=== PATIENT | male | born 1950 | race Caucasian/White ===

== ENCOUNTER 2024-11-21 18:52 | Emergency (ER) | payer MEDICARE, OTHER, SELFPAY ==
[2024-11-21 18:53] VITALS: BP 129/80; BMI 30.6
[2024-11-21 19:34] LABS: % Basophils 0.4 % (0-2); % Immature Granulocytes 0.4 % (0-0.5); % Lymphocytes 14.8 % (20.5-51.1); % Monocytes 7.9 % (1.7-9.3); % Neutrophils 75.5 % (42.2-75.2); Absolute Basophils 0.1 10^3/uL (0-0.2); Absolute Eosinophils 0.1 10^3/uL (0-0.7); Absolute Immature Granulocytes 0.1 10^3/uL (0-0.05); Absolute Lymphocytes 1.8 10^3/uL (1.2-3.4); Absolute Neutrophils 9.1 10^3/uL (1.4-6.5); Hemoglobin 14.7 g/dL (13.0-18.0); Mean Corp Hgb Conc. 36.8 g/dL (33.0-37.0); Mean Platelet Volume 9.8 fL (7.4-10.4); Nucleated Red Blood Cells % 0 % (-); Platelet Count 230 10^3/uL (130-400); Red Cell Dist. Width 12.1 % (11.5-14.5); White Blood Cell Count 12.1 10^3/uL (4.8-10.8)
[2024-11-21 19:47] LABS: ALT (SGPT) 21 U/L (0-50); AST (SGOT) 20 U/L (17-59); Albumin 4.5 g/dl (3.5-5.0); Alkaline Phosphatase 54 U/L (38-126); Blood Urea Nitrogen 14 mg/dl (9-20); Calcium 9.4 mg/dl (8.4-10.2); Carbon Dioxide 28 mmol/L (22-30); Chloride 103 mmol/L (98-107); Glucose 128 mg/dl (70-99); Lipase 31 U/L (23-300); Sodium 138 mmol/L (135-145); Total Bilirubin 1.5 mg/dl (0.2-1.3); Total Protein 7.3 g/dl (6.3-8.2); eGFR > 60.00
[2024-11-21 19:49] VITALS: BP 138/77
[2024-11-21 20:00] VITALS: BP 127/75
--- NOTE | 2024-11-21 20:17 | ED.GENMED ---
History of Present Illness
General
Chief Complaint: Abdominal Pain
Source: patient and spouse
Time Seen by Provider: 11/21/24 19:42
History of Present Illness
History of Present Illness:
This patient is a 74-year-old male presents emergency department complaints of feeling the urge to defecate over the last few days and when he would defecate he still had this sense of pressure in the lower mid abdomen. He thought maybe his belt
was too tight or that he had pulled a muscle. Then, this morning, he noticed the pain had migrated to the left lower quadrant and was described as 'sharp '. The pain is minimal while at rest but gets much worse with moving or walking. He went to
an urgent care today and was referred to the emergency department. He denies fever, chills, nausea, vomiting, anorexia, chest pain, dyspnea, back pain, urinary symptoms. His last bowel movement was today, no blood, not loose.
Past History
Past History
ED Past Medical History: Hypercholesterolemia and Other (Kidney stone)
ED Past Surgical History: Other (Hernia, nasal)
Social History
Tobacco: Former smoker
Alcohol: Occasional
Drug: None
Personal:
Living: with family
Phy Exam
Physical Exam
Physical Exam:
GENERAL: Alert , in no apparent distress
EYE: pupils equal and reactive
NECK: Supple, no significant adenopathy.
ENT: o/p clr, mmm.
CARDIAC: Regular rate and rhythm .
LUNGS: Clear breath sounds bilaterally, no acute respiratory distress, no wheezes/rales/rhonchi
ABDOMEN: Soft, moderate left lower quadrant tenderness, no r/g, no cvat
NEUROLOGICAL: Alert and oriented, no focal neuro deficits
SKIN: Warm and dry, skin intact.
MUSCULOSKELETAL: No edema, well perfused.
PSYCH: Normal and appropriate interaction.
Course
Orders/Labs/Results
Orders:
Orders
11/21/24 19:01
IV Insert/Care/Rem.- Treatment PRN
Straight cath- Treatment ONCE
Urinalysis Reflex To Culture Urgent
Date Specimen was Collected: 11/21/24
Time Specimen was Collected: 19:01
11/21/24 19:24
Complete Blood Count/With Diff Urgent
Comprehensive Metabolic Panel Urgent
Lipase Urgent
11/21/24 20:17
CT Abd/Pel (IV only)-DH only Urgent
Comment:
Reason For Exam: llq pain
Abnormal Lab Results
11/21/24
19:24
WBC 12.1 H 10^3/uL
(4.8-10.8)
RBC 4.60 L 10^6/uL
(4.70-6.10)
MCH 32.0 H pg
(27.0-31.0)
Abs Immat Gran (auto) 0.1 H 10^3/uL
(0-0.05)
Absolute Neuts (auto) 9.1 H 10^3/uL
(1.4-6.5)
Absolute Monos (auto) 1.0 H 10^3/uL
(0.1-0.6)
Neutrophils % 75.5 H %
(42.2-75.2)
Lymphocytes % 14.8 L %
(20.5-51.1)
Glucose 128 H mg/dl
(70-99)
Total Bilirubin 1.5 H mg/dl
(0.2-1.3)
11/21/24 19:24
11/21/24 19:24
Vital Signs
Initial and Last Documented VS:
Initial Vital Signs
Temp Pulse Resp BP Pulse Ox
98.2 F 76 16 129/80 97
11/21/24 18:53 11/21/24 18:53 11/21/24 18:53 11/21/24 18:53 11/21/24 18:53
Last Documented Vital Signs
Temp Pulse Resp BP Pulse Ox
98.2 F 76 16 138/77 96
11/21/24 18:53 11/21/24 18:53 11/21/24 18:53 11/21/24 19:49 11/21/24 20:00
*Critical Care Note
Total Time (30-74mins, 75-104mins- exclusive of procedures): Not Applicable
Update Note
Update Note:
Patient presents to the Emergency Department with ____abdominal pain
Number and Complexity of Problems Addressed at the Encounter
� Chronic conditions affecting care:
� Acute Exacerbation and/or Progression of Chronic Illness:
� Differential Diagnosis includes: But not limited to diverticulitis, kidney stone, colitis, etc. etc.
Amount and/or Complexity of Data to be Reviewed and Analyzed
� I performed an independent evaluation of and my interpretation is:
EKG:
CT:Acute diverticulitis of the distal descending colon. No CT evidence for perforation or pericolonic abscess.
Xrays:
Laboratory Studies: Mild nonspecific leukocytosis
Other:
� Review of other/old records reveals:
� Clinical information was obtained by an independent historian: who is bedside
� Prescriptions/Medications Considered but not given:
� Further testing considered but not performed:
Risk of Complications and/or Morbidity or Mortality of Patient Management
� Social determinants of health affecting care:
� Discussion with other providers (PCP, Hospitalists, Consultants, etc):
� Escalation of care including admission/observation vs risk of discharge considered: CAT scan pending, patient declines pain medication at this time, overall well-appearing.
CT results reviewed with patient and , antibiotics ordered and transmitted to his pharmacy. We will give him a low-dose of morphine here given pain with movement, otherwise advised Tylenol or Motrin at home. Discussed with patient portance of
follow-up and reasons return to the ER.
ED Attending Note
-
Portions of this chart may have been created with voice recognition software.� Occasional wrong word or��sound alike� substitutions may have occurred due to the inherent limitations of voice recognition software.
Discharge Plan
Departure
Patient Disposition: Home (Routine Discharge)
Date of Disposition: 11/21/24
Time of Disposition: 21:17
Patient with high blood pressure during this ER visit?: Yes
Condition: Good
Discharge Problem:
Diverticulitis
Instructions: Diverticulitis (DC), BLOOD PRESSURE
Prescriptions:
New
levofloxacin 750 mg tablet
750 mg PO DAILY 10 Days Qty: 10 0RF
metronidazole 500 mg tablet
500 mg PO TID Qty: 30 0RF
Referrals:
Aidan Keenan, [Family Provider] - Follow up in 2-3 days
Activity Restrictions/Additional Instructions:
IF YOU DEVELOP INCREASING OR PERSISTENT OR NEW PAIN, ANY VOMITING, NAUSEA, FEVER, GET WORSE, DO NOT GET BETTER, OR OTHER WORRISOME SIGNS, PLEASE RETURN TO THE ER IMMEDIATELY.
Interventions
Interventions:
*Risk Screen - Suicide Last Done: 11/21/24 18:56
*General Assessment Last Done: 11/21/24 20:01
*Neglect/Abuse Screening Last Done: 11/21/24 18:56
*ED COVID-19 Vaccine History Last Done: 11/21/24 20:01
Discharge Date and Time
Print Language: MONGOLIAN
[2024-11-21 21:24] VITALS: BP 130/72
[2024-11-21] MEDS: LEVAQUIN 750 MG PO (21:24)
[2024-11-21] MEDS: FLAGYL 500 MG PO (21:24)
[2024-11-21] MEDS: MORPHINE SULFATE 2 MG IV (21:25)
== END 2024-11-21 21:43 | disposition home or self-care (01) ==
LOC: EMR 18:52
PROVIDERS: EMERGENCY PHYSICIAN Emergency Medicine; FAMILY PHYSICIAN Internal Medicine
DX: K57.32 Diverticulitis of large intestine without perforation or abscess without bleeding (principal); E78.00 Pure hypercholesterolemia, unspecified; Z87.442 Personal history of urinary calculi; Z87.891 Personal history of nicotine dependence
CPT/HCPCS: 96374; 99284; 74177; 80053; 83690; 85025; Q9967